=== PATIENT | male | born 1945 | race Caucasian/White ===

== ENCOUNTER → 2017-12-13 19:47 | Outpatient (CLI) | payer OTHER, SELFPAY | PROVIDERS: Visit Provider Nurse Practitioner Family | DX: G47.33 Obstructive sleep apnea (adult) (pediatric) (principal); I10 Essential (primary) hypertension; R40.0 Somnolence | CPT/HCPCS: 95810 ==

== ENCOUNTER 2022-09-23 12:46 | Outpatient (RCR) | payer OTHER, SELFPAY | END 2022-09-23 23:59 | disposition home or self-care (01) | LOC: PT 12:46 | PROVIDERS: Visit Provider Student in an Organized Health Care Education/Training Program | DX: I25.10 Atherosclerotic heart disease of native coronary artery without angina pectoris (principal); Z95.1 Presence of aortocoronary bypass graft ==